=== PATIENT | male | born 1945 | race Caucasian/White ===

== ENCOUNTER → 2019-01-30 08:05 | Outpatient (CLI) | payer OTHER, SELFPAY ==
--- NOTE | 2019-01-30 | DI.ECHO.S_ITS ---
[facility] +---------+ : : [address] : : : : [id number] : : : : Phone: [phone]+ Echocardiogram Report + + :Name: JIMY HOLT Study Date: 01/30/2019 Height: 72 in : :[facility] Weight: 172 lb : : Gender: Male BSA: 2.0 m2 : :: 1945 Age: 73 yrs BP: 128/52 mmHg: :Reason For Study: Aortic, Ascending Aneurysm : :Ordering Physician: Delon : :Elton Performed By: Ade Taylor : :Referring: Dr. Tariq Pineda : + + Interpretation Summary Left ventricular systolic function is normal with the ejection fraction visually estimated to be 60-65% without focal wall motion abnormalities although there is a significant dyssynchronous contraction pattern, consistent with a conduction abnormality. Diastolic parameters suggest a relaxation abnormality of the left ventricle, consistent with probable normal filling pressures. There has been no significant change since the previous study. The right ventricle is normal in size and function and appears unchanged compared to the previous study. The right ventricular systolic pressure is estimated to be at least 26 mmHg based on an estimated right atrial pressure of 3 mm Hg, and is likely unchanged compared to the previous study. Both atria are mildly dilated. The left atrium has mildly increased in size while the right atrium has significantly decreased in size since the prior echo exam. There is mild to moderate mitral regurgitation that is likely unchanged compared to the previous study. There is a mechanical aortic valve that is not well visualized but appears to be well-seated with gradients through the prosthetic aortic valve that are within the normal range for this type of valve and are unchanged compared to the previous study. The aortic root and ascending aorta are moderately enlarged, but unchanged compared to the previous study. The aortic arch is mildly enlarged. The patient was in atrial fibrillation with heart rates between 50-55 bpm during the exam which is slightly slower compared to the previous study. Procedure: A two-dimensional transthoracic echocardiogram with color flow and Doppler was performed. The study quality was technically adequate. Comparison is made with the echocardiogram of 01-25-17. The patient was in atrial fibrillation with heart rates between 50-55 bpm during the exam. This is slightly slower compared to the previous study. Left Ventricle: The left ventricle is normal in size. Left ventricular wall thickness is at the upper limits of normal. Left ventricular systolic function is normal without focal wall motion abnormalities. The ejection fraction is estimated to be 60-65%. There is a significant dyssynchronous contraction pattern, consistent with a conduction abnormality. Diastolic parameters suggest a relaxation abnormality of the left ventricle, consistent with probable normal filling pressures. There has been no significant change since the previous study. Right Ventricle: The right ventricle is normal in size and function. This is unchanged compared to the previous study. Atria: Both atria are mildly dilated. The left atrium has mildly increased in size since the prior echo exam. The right atrium has significantly decreased in size since the prior echo exam. The interatrial septum is intact with no evidence for an atrial septal defect. Mitral Valve: There is mild mitral annular calcification. The mitral valve leaflets appear mildly thickened, but open well. There is mild to moderate mitral regurgitation. This is likely unchanged compared to the previous study. Aortic Valve: There is a mechanical aortic valve. The prosthetic aortic valve is not well visualized. The prosthetic aortic valve is well-seated. The gradients through the prosthetic aortic valve are within the normal range for this type of valve. This is unchanged compared to the previous study. No aortic regurgitation is present. Tricuspid Valve: The tricuspid valve is normal in structure and function. There is trace tricuspid regurgitation. The right ventricular systolic pressure is estimated to be at least 26 mmHg based on an estimated right atrial pressure of 3 mm Hg. This is unchanged compared to the previous study. Pulmonic Valve: The pulmonic valve is not well seen, but is grossly normal. There is trace pulmonic regurgitation. There is no other significant valvular heart disease. Great Vessels: The aortic root is moderately dilated. This is unchanged compared to the previous study. The ascending aorta is moderately enlarged. This is unchanged compared to the previous study. The aortic arch is mildly enlarged. The IVC is of normal diameter and collapses greater than 50% with a sniff. This suggests a low right atrial pressure of 3 mm Hg. Pericardium/ Pleura There is no pericardial effusion. There is no pleural effusion. MMode/2D Measurements & Calculations LVIDd: 3.6 cm LVOT diam: 2.1 cm LVIDs: 2.5 cm Ao root diam: 4.5 cm FS: 32.1 % Aortic Jxn: 3.3 cm IVSd: 1.2 cm asc Aorta Diam: 4.4 cm LVPWd: 1.0 cm Ao Arch Diam (Prox Trans): 3.5 cm LV tillman. diameter/BSA (cm/m^2): 1.8 LV sys. diameter/BSA (cm/m^2): 1.2 LA dimension: 3.6 cm RA long axis: 4.9 cm LA A2 area: 23.9 cm2 RA area: 21.0 cm2 LA A4 area: 20.3 cm2 RA vol: 76.6 ml LA length (vol): 5.3 cm RA : 38.3 ml/m2 LA vol: 77.3 ml IVC diam: 2.2 cm LA vol index: 38.7 ml/m2 RVD1 (basal): 3.5 cm RVD2 (mid): 4.5 cm Doppler Measurements & Calculations Ao V2 max: 252.0 cm/sec LVOT Max Macario: 110.3 cm/sec Ao V2 mean: 150.6 cm/sec LV V1 max P.9 mmHg Ao max P.4 mmHg LV V1 VTI: 22.9 cm Ao mean P.8 mmHg ANGIE(I,D): 1.8 cm2 Ao V2 VTI: 45.9 cm ANGIE(V,D): 1.6 cm2 sev ratio: 0.50 ANGIE indexed to BSA (cm^2/m^2): 0.91 MV E max macario: 141.2 cm/sec TR max macario: 242.6 cm/sec Med Peak E' Macario: 6.4 cm/sec TR max P.5 mmHg E/E' med: 22.0 PA V2 max: 128.8 cm/sec Lat Peak E' Macario: 11.7 cm/sec PA V2 mean: 68.8 cm/sec E/E' lat: 12.1 PA mean P.5 mmHg E/e' average: 17.0 PA Accel Time: 0.14 sec MV P1/2t: 106.5 msec MVA(VTI): 2.4 cm2 MR ERO: 0.51 cm2 MV V2 mean: 52.7 cm/sec MV P1/2t max macario: 141.2 cm/sec MV mean P.9 mmHg MVA(P1/2t): 2.1 cm2 MV V2 VTI: 34.8 cm MR flow rate: 257.7 cm3/sec SV(LVOT): 83.2 ml MR PISA radius: 0.80 cm Reading Physician:TARA
[2019-01-30 09:47] LABS: Alanine Aminotransferase 27 IU/L (21-72); Albumin 4.2 g/dL (3.5-5.0); Albumin Globulin Ratio 1.4 (1.0-2.8); Alkaline Phosphatase 57 U/L (38-126); Aspartate Aminotransferase 30 IU/L (17-59); Bilirubin Total 0.7 mg/dL (0.2-1.3); Blood Urea Nitrogen 24 mg/dL (9-20); Calcium 9.5 mg/dL (8.4-10.2); Carbon Dioxide 33 mmol/L (22-32); Chloride 99 mmol/L (98-107); Cholesterol 157 mg/dL (140-199); Estimated Glomerular Filt Rate 59.2 mL/min (>60); Globulin 3.1 g/dL (1.7-4.1); Glucose 90 mg/dL (80-110); HDL Cholesterol 55 mg/dL (40-60); HEMOLYSIS < 15 (0-50); LDL Cholesterol Calculated 84 mg/dL (<100); Magnesium 1.8 mg/dL (1.6-2.3); Potassium 4.7 mmol/L (3.4-5.1); Sodium 140 mmol/L (137-145); Total Protein 7.3 g/dL (6.3-8.2); Triglycerides 88 mg/dL (35-150)
== END ==
PROVIDERS: Family Provider Internal Medicine; PCP Internal Medicine; Visit Provider Specialist
DX: I71.2 Thoracic aortic aneurysm, without rupture (principal); I34.0 Nonrheumatic mitral (valve) insufficiency; I48.2 Chronic atrial fibrillation; E78.2 Mixed hyperlipidemia; Z95.2 Presence of prosthetic heart valve
CPT/HCPCS: 36415; 80053; 80061; 83735; 93306

== ENCOUNTER → 2019-03-03 13:29 | Outpatient (CLI) | payer OTHER, SELFPAY ==
[2019-03-03 13:53] LABS: Add Manual Diff / Slide Review NO; Basophils Absolute Auto 0 /uL (0-100); Basophils Percent Auto 0.6 % (0-2); Eosinophils Absolute Auto 600 /uL (0-450); Eosinophils Percent Auto 7.6 % (2-4); Hematocrit 45.5 % (41-53); Hemoglobin 15.2 g/dL (13.5-17.5); Lymphocytes Absolute Auto 700 /uL (1100-4500); Lymphocytes Percent Auto 8.3 % (25-40); Mean Corpuscular HGB Conc 33.4 % (30-36); Mean Corpuscular Hemoglobin 30.2 PG (26-34); Mean Corpuscular Volume 90.4 fL (80-100); Monocytes Absolute Auto 800 /uL (0-900); Monocytes Percent Auto 9.5 % (3-14); Neutrophils Absolute Auto 6100 /uL (1500-7000); Platelet Count 273 X10^3/uL (150-400); Red Blood Cell Count 5.03 X10^6/uL (4.5-5.9); White Blood Cell Count 8.2 X10^3/uL (4.5-11.0)
[2019-03-03 15:40] LABS: Prostate Specific Antigen 0.915 ng/mL (0.10-4.00)
== END ==
PROVIDERS: PCP Internal Medicine; Visit Provider Internal Medicine
DX: N18.9 Chronic kidney disease, unspecified (principal); M45.2 Ankylosing spondylitis of cervical region; E78.00 Pure hypercholesterolemia, unspecified
CPT/HCPCS: 36415; 84153; 85025

== ENCOUNTER → 2019-03-16 13:53 | Outpatient (CLI) | payer OTHER, SELFPAY ==
--- NOTE | 2019-03-16 | DI.RAD.S_ITS ---
PROCEDURE: XR CHEST 2V INDICATIONS: COUGH TECHNIQUE: 2 views of the chest were acquired. COMPARISON: [facility], , CHEST 2 VIEW, 11/10/2016, 13:51. FINDINGS: Surgical changes and devices: Sternotomy wires. Lungs and pleura: The lungs are hyperinflated in keeping with chronic obstructive physiology. Patchy consolidative opacity in the retrocardiac region. Its appears grossly increased. Elsewhere, no new or focal consolidation.. No pleural effusions or pneumothorax. Mediastinum: Mediastinal contours are normal. Heart size is normal. Bones and chest wall: No suspicious bony abnormalities. Soft tissues appear unremarkable. IMPRESSION: Scattered scarring/atelectasis. Increased patchy retrocardiac opacity raising the possibility of pneumonia versus aspiration recommend clinical correlation. If there is persistent clinical diagnostic uncertainty, continued surveillance with short interval chest radiographs after treatment is recommended. Hyperinflated lungs in keeping with chronic obstructive physiology. Dictated by: Woo Cortés M.D. on 03/16/2019 at 16:43 Approved by: Woo Cortés M.D. on 03/16/2019 at 16:46
== END ==
PROVIDERS: PCP Internal Medicine; Visit Provider Internal Medicine
DX: R05 Cough (principal)
CPT/HCPCS: 71046

== ENCOUNTER → 2019-04-10 13:55 | Outpatient (CLI) | payer OTHER, SELFPAY ==
--- NOTE | 2019-04-10 | DI.RAD.S_ITS ---
PROCEDURE: XR CHEST 2V INDICATIONS: Pneumonia, unspecified organism TECHNIQUE: 2 views of the chest were acquired. COMPARISON: [facility], CR, XR CHEST 2V, 03/16/2019, 13:53. FINDINGS: Surgical changes and devices: Sternotomy wires and CABG clips Lungs and pleura: Lungs are hyperinflated however no acute consolidation. Scattered scarring/atelectasis.. No pleural effusions or pneumothorax. Mediastinum: Mediastinal contours are normal. Heart size is normal. Bones and chest wall: No suspicious bony abnormalities. Soft tissues appear unremarkable. IMPRESSION: No acute consolidation. Scattered subsegmental atelectasis and/or scarring. Hyperinflated lungs in keeping with chronic obstructive physiology. Dictated by: Woo Cortés M.D. on 04/10/2019 at 15:22 Approved by: Woo Cortés M.D. on 04/10/2019 at 15:24
== END ==
PROVIDERS: PCP Internal Medicine; Visit Provider Internal Medicine
DX: J18.9 Pneumonia, unspecified organism (principal)
CPT/HCPCS: 71046

== ENCOUNTER → 2019-10-27 14:41 | Outpatient (CLI) | payer OTHER, SELFPAY ==
--- NOTE | 2019-10-30 15:45 | DI.NM.S_ITS ---
DATE OF SERVICE: 10/27/2019 PROCEDURE PERFORMED: Pharmacologic vasodilator stress and rest myocardial perfusion imaging study with gating to assess ejection fraction and regional wall motion. ORDERING PROVIDER: Tariq Pineda MD. INDICATIONS: The patient is an 74-year-old male with chronic atrial fibrillation and prosthetic valve replacement who now presents with chest discomfort. CARDIAC STRESS: Per protocol, 0.4 mg of regadenoson was infused with a normal hemodynamic response. His resting heart rate was 49 bpm and increased to a peak of 54 bpm. He had no chest discomfort. His resting ECG shows an atypical LBBB with underlying atrial fibrillation. There are no significant ST-segment shifts noted. There were no other arrhythmias. FINDINGS: 1. Raw Data: There is marginal image quality with some subdiaphragmatic tracer activity noted on the resting images. The patient was unable to lay prone because of his cervical fusion. The lung/heart ratio is normal at 0.31 with a normal TID ratio of 1.07. 2. Quantitative Gated SPECT: Post stress ejection fraction is estimated at 63% without any focal wall motion abnormality. Resting ejection fraction is 69% with a moderately increased end-diastolic volume of 165 mL. 3. Myocardial Perfusion Imaging: Post stress supine images are of marginal image quality but suggest a mild defect in the oiu-zh-[id number] anterior septum in a location that would be typical for an LBBB artifact. This does not extend the anterior wall appreciably. There are no prone images to assess for any attenuation artifact. The resting images show a fairly similar perfusion pattern with perhaps very subtle improvement in the distal anteroseptal defect. There are no obvious areas of significant improvement. CONCLUSION: 1. Probable normal myocardial perfusion study, although with significant reduced sensitivity and specificity because of marginal image quality and a lack of prone imaging. 2. Subtle, predominantly fixed but slightly reversible perfusion defect in the aga-jp-brpcbr anterior septum in a location that would be consistent with LBBB artifact. There is no prone imaging for further delineation. While this could reflect a previous nontransmural infarction with mild saurabh-infarct ischemia, this more likely reflects LBBB artifact. If it does reflect a true perfusion defect, it is relatively small and mild and thus, would be considered a low-risk study. 3. Normal left ventricular systolic function without any regional wall motion abnormality but moderately increased left ventricular volumes. 4. No angina or obvious ECG abnormalities of ischemia with pharmacologic vasodilator stress, although the presence of an underlying conduction defect reduces the specificity of the ST segment analysis. He was in atrial fibrillation and moderately bradycardic with a heart rate of 49 at rest. Vangie, Ryanjoshua - RUDY/geovany/ doc#: [id number]/job#: [id number] dd: 10/30/2019 12:34:00 dt: 10/30/2019 15:30:00 DICTATING MD/COPIES TO: Delon Conde MD; Tariq Pineda MD COPIES MNE: REBEKAH RAMIREZ
== END ==
PROVIDERS: Family Provider Specialist; PCP Internal Medicine; Visit Provider Internal Medicine
DX: R07.89 Other chest pain (principal); I48.20 Chronic atrial fibrillation, unspecified; Z95.2 Presence of prosthetic heart valve
CPT/HCPCS: 78452; 93016; 93017; 93018; A9502; J2785

== ENCOUNTER → 2020-01-26 09:08 | Outpatient (CLI) | payer OTHER, SELFPAY ==
[2020-01-26 10:38] LABS: Alanine Aminotransferase 22 IU/L (<50); Albumin 4.2 g/dL (3.5-5.0); Albumin Globulin Ratio 1.4 (1.0-2.8); Alkaline Phosphatase 56 U/L (38-126); Aspartate Aminotransferase 39 IU/L (17-59); BUN Creatinine Ratio 16.7 (6-22); Bilirubin Total 0.7 mg/dL (0.2-1.3); Blood Urea Nitrogen 20 mg/dL (9-20); Calcium 9.7 mg/dL (8.4-10.2); Carbon Dioxide 34 mmol/L (22-32); Chloride 102 mmol/L (98-107); Globulin 3.1 g/dL (1.7-4.1); Glucose 90 mg/dL (80-110); HEMOLYSIS < 15 (0-50); Magnesium 1.7 mg/dL (1.6-2.3); Potassium 4.6 mmol/L (3.4-5.1); Sodium 141 mmol/L (137-145); Total Protein 7.3 g/dL (6.3-8.2)
[2020-01-30 07:55] LABS: Lipoprofile NMR SEE SEPARATE REPORTS
== END ==
PROVIDERS: Family Provider Specialist; PCP Internal Medicine; Referring Provider Specialist; Visit Provider Specialist
DX: I48.20 Chronic atrial fibrillation, unspecified (principal); E78.2 Mixed hyperlipidemia
CPT/HCPCS: 36415; 80053; 83704; 83735

== ENCOUNTER → 2020-09-26 07:11 | Outpatient (CLI) | payer OTHER, SELFPAY ==
[2020-09-26 08:31] LABS: Add Manual Diff / Slide Review NO; Basophils Absolute Auto 0 /uL (0-100); Basophils Percent Auto 0.6 % (0-2); Eosinophils Absolute Auto 500 /uL (0-450); Eosinophils Percent Auto 7.9 % (2-4); Hematocrit 45.8 % (41-53); Hemoglobin 15.2 g/dL (13.5-17.5); Lymphocytes Absolute Auto 1200 /uL (1100-4500); Lymphocytes Percent Auto 19.1 % (25-40); Mean Corpuscular HGB Conc 33.2 % (30-36); Mean Corpuscular Hemoglobin 31.1 PG (26-34); Mean Corpuscular Volume 93.6 fL (80-100); Monocytes Absolute Auto 700 /uL (0-900); Neutrophils Absolute Auto 3800 /uL (1500-7000); Neutrophils Percent Auto 61.4 % (50-75); Platelet Count 190 X10^3/uL (150-400); Red Blood Cell Count 4.89 X10^6/uL (4.5-5.9); Red Cell Distribution Width 15.3 % (11.6-14.8); White Blood Cell Count 6.3 X10^3/uL (4.5-11.0)
[2020-09-26 08:54] LABS: Alanine Aminotransferase 20 IU/L (<50); Albumin 4.1 g/dL (3.5-5.0); Albumin Globulin Ratio 1.4 (1.0-2.8); Alkaline Phosphatase 59 U/L (38-126); Aspartate Aminotransferase 40 IU/L (17-59); BUN Creatinine Ratio 17.2 (6-22); Bilirubin Total 0.9 mg/dL (0.2-1.3); Blood Urea Nitrogen 21 mg/dL (9-20); Calcium 9.3 mg/dL (8.4-10.2); Carbon Dioxide 37 mmol/L (22-32); Chloride 102 mmol/L (98-107); Cholesterol 158 mg/dL (140-199); Estimated Glomerular Filt Rate 57.8 mL/min (>60); Glucose 90 mg/dL (80-110); HDL Cholesterol 57 mg/dL (40-60); HEMOLYSIS < 15 (0-50); LDL Cholesterol Calculated 81 mg/dL (<100); Potassium 4.6 mmol/L (3.4-5.1); Sodium 138 mmol/L (137-145); Total Protein 7.1 g/dL (6.3-8.2); Triglycerides 99 mg/dL (35-150)
== END ==
PROVIDERS: Family Provider Specialist; PCP Internal Medicine; Referring Provider Internal Medicine; Visit Provider Internal Medicine
DX: N18.9 Chronic kidney disease, unspecified (principal); E78.00 Pure hypercholesterolemia, unspecified
CPT/HCPCS: 36415; 80053; 80061; 85025

== ENCOUNTER → 2021-07-03 06:26 | Outpatient (CLI) | payer OTHER, SELFPAY ==
[2021-07-03 08:10] LABS: Alanine Aminotransferase 20 IU/L (<50); Albumin 3.8 g/dL (3.5-5.0); Albumin Globulin Ratio 1.2 (1.0-2.8); Alkaline Phosphatase 53 U/L (38-126); Aspartate Aminotransferase 35 IU/L (17-59); BUN Creatinine Ratio 18.3 (6-22); Bilirubin Total 0.7 mg/dL (0.2-1.3); Blood Urea Nitrogen 24 mg/dL (9-20); Calcium 9.5 mg/dL (8.4-10.2); Carbon Dioxide 35 mmol/L (22-32); Chloride 102 mmol/L (98-107); Estimated Glomerular Filt Rate 53.1 mL/min (>60); Globulin 3.1 g/dL (1.7-4.1); Glucose 94 mg/dL (80-110); HEMOLYSIS < 15 (0-50); Potassium 4.9 mmol/L (3.4-5.1); Sodium 141 mmol/L (137-145); Total Protein 6.9 g/dL (6.3-8.2)
[2021-07-04 02:38] LABS: Cholesterol HDL Ratio 2.6 ratio (0.0-5.0); Cholesterol,Total 140 mg/dL (100-199); HDL Cholesterol 53 mg/dL (>39); LDL Cholesterol Cal 73 mg/dL (0-99); Triglycerides 70 mg/dL (0-149); VLDL Cholesterol Cal 14 mg/dL (5-40)
[2021-07-05 09:36] LABS: Cholesterol, Total 149 mg/dL (100-199); HDL-Cholesterol 61 mg/dL (>39); HDL-Particle (Total) 32.7 umol/L (>=30.5); LDL Particle 654 nmol/L (<1000); LDL Size 20.5 nm (>20.5); LDL-Cholsterol 74 mg/dL (0-99); LP-IR Score <25 (<=45); Small LDL- Particle 285 nmol/L (<=527); Triglycerides 71 mg/dL (0-149)
== END ==
PROVIDERS: Family Provider Specialist; PCP Internal Medicine; Referring Provider Internal Medicine; Visit Provider Internal Medicine
DX: E78.2 Mixed hyperlipidemia (principal); I48.20 Chronic atrial fibrillation, unspecified
CPT/HCPCS: 36415; 80053; 80061; 83704; 83735

== ENCOUNTER → 2022-02-02 07:58 | Outpatient (CLI) | payer OTHER, SELFPAY ==
--- NOTE | 2022-02-02 | DI.ECHO.S_ITS ---
[facility]---------+ [facility] +---------+ : : [address] : [address] : : : : [id number] : : : : Phone: [phone]---------+ Echocardiogram Report + + :Name: JIMY HOLT Study Date: 02/02/2022 Height: 75 in : :[facility] ReadingLocation: Weight: 185 lb : : Gender: Male BSA: 2.1 m2 : :: 1945 Age: 76 yrs BP: 165/79 mmHg: :Reason For Study: MECHANICAL AORTIC VALVE REPLACEMENT : :Ordering Physician: SATINDER, : :JORDAN Performed By: Ruby Adams : :Referring: JORDAN RAJAN : + + Interpretation Summary Left ventricular systolic function is borderline reduced with an estimated ejection fraction of 50 to 60% with considerable [id number] variability because of atrial fibrillation and a severe dyssynchronous contraction pattern due to a conduction abnormality. There are no obvious focal wall motion abnormalities. Contractility appears to be slightly less dynamic compared to the previous exam. Left ventricular size remains normal with borderline LVH. Diastolic function remains challenging to assess because of atrial fibrillation but is likely similar to the previous study with no compelling evidence for significantly elevated filling pressures. The right ventricle is normal in size with borderline reduced systolic function and appears slightly less dynamic compared to the previous study. Right ventricular systolic pressure cannot be estimated but CVP is likely around 3 mmHg. There is severe biatrial enlargement, both measuring significantly larger compared to the previous study. There is probable mild to moderate mitral regurgitation that is likely unchanged from the previous study. There is a mechanical aortic valve that appears to be functioning normally with similar gradients compared to the previous exam. The aortic root and ascending aorta are moderately enlarged at 4.5 and 4.0 cm, respectively, but are likely unchanged from the previous exam. The patient was in atrial fibrillation between 43 to 46 bpm during the study which is slightly slower compared to the previous exam. Procedure: A two-dimensional transthoracic echocardiogram with color flow and Doppler was performed. The study quality was technically adequate. Comparison is made with the echocardiogram of 01/30/2019. The patient was in atrial fibrillation with heart rates between 43-46 bpm during the exam. This is slightly slower compared to the previous study. Left Ventricle: The left ventricle is normal in size. The estimated left ventricular end diastolic volume is 79 ml. Left ventricular wall thickness is borderline increased. Left ventricular systolic function is borderline reduced. Left ventricular ejection fraction is estimated to be 50 to 60% with considerable [id number]-bd-[id number] variability because of atrial fibrillation. There is a severe dyssynchronous contraction pattern, consistent with a conduction abnormality. There are no focal wall motion abnormalities. This is slightly less dynamic compared to the previous study. Diastolic function could not be accurately assessed due to atrial fibrillation. This is likely unchanged compared to the previous study. Right Ventricle: The right ventricle is normal size. Right ventricular systolic function is at the lower limits of normal. This is slightly less dynamic compared to the previous study. Atria: The left atrium is severely dilated. Both atria have significantly increased in size since the prior echo exam. The right atrium is severely dilated. There is no Doppler evidence for an interatrial shunt. Mitral Valve: There is mild mitral annular calcification. The mitral valve leaflets appear moderately thickened, but open well. There is mild to moderate mitral regurgitation. This is unchanged compared to the previous study. Aortic Valve: There is a mechanical aortic valve. The prosthetic aortic valve is well-seated. The gradients through the prosthetic aortic valve are within the normal range for this type of valve. There is probable normal prosthetic aortic valve function. The peak aortic velocity is 2.5 m/sec. The aortic valve mean gradient is 14 mmHg. Tricuspid Valve: The tricuspid valve is normal in structure and function. There is trace tricuspid regurgitation. Pulmonary artery pressures cannot be estimated because of the lack of a measurable TR jet velocity but the IVC suggests a CVP of around 3 mmHg. Pulmonic Valve: The pulmonic valve leaflets are thin and pliable; valve motion is normal. There is trace pulmonic regurgitation. Great Vessels: The aortic root is moderately dilated. The ascending aorta is moderately enlarged. This is unchanged compared to the previous study. The IVC is of normal diameter and collapses greater than 50% with a sniff. This suggests a low right atrial pressure of 3 mm Hg. Pericardium/ Pleura There is no pericardial effusion. There is no pleural effusion. MMode/2D Measurements & Calculations LVIDd: 4.7 cm LVOT diam: 2.3 cm LVIDs: 3.3 cm Ao root diam: 4.5 cm FS: 29.5 % asc Aorta Diam: 4.0 cm IVSd: 0.94 cm LVPWd: 1.1 cm LV tillman. diameter/BSA (cm/m^2): 2.2 LV sys. diameter/BSA (cm/m^2): 1.6 LA A2 area: 32.2 cm2 RA long axis: 7.5 cm LA A4 area: 36.9 cm2 RA area: 35.9 cm2 LA length (vol): 8.4 cm RA vol: 145.8 ml LA vol: 120.5 ml RA : 68.7 ml/m2 LA vol index: 56.8 ml/m2 IVC diam: 1.5 cm RVD1 (basal): 3.6 cm TAPSE: 1.7 cm Doppler Measurements & Calculations Ao V2 max: 253.3 cm/sec LVOT Max Macario: 102.8 cm/sec Ao V2 mean: 170.3 cm/sec LV V1 max P.3 mmHg Ao max P.7 mmHg LV V1 VTI: 23.2 cm Ao mean P.1 mmHg ANGIE(I,D): 1.8 cm2 Ao V2 VTI: 53.7 cm ANGIE(V,D): 1.7 cm2 sev ratio: 0.43 ANGIE indexed to BSA (cm^2/m^2): 0.85 MV E max macario: 143.1 cm/sec PA V2 max: 127.7 cm/sec MV A max macario: 3.2 cm/sec PA V2 mean: 91.0 cm/sec MV E/A: 44.9 PA mean P.7 mmHg Med Peak E' Macario: 5.4 cm/sec PA pr(Accel): 27.6 mmHg E/E' med: 26.5 Lat Peak E' Macario: 11.2 cm/sec E/E' lat: 12.8 E/e' average: 19.7 MV dec time: 0.37 sec SV(LVOT): 97.4 ml Reading Physician:11:05 AM
[2022-02-02 10:29] LABS: Alanine Aminotransferase 18 IU/L (<50); Albumin 4.6 g/dL (3.5-5.0); Albumin Globulin Ratio 1.6 (1.0-2.8); Alkaline Phosphatase 52 U/L (38-126); Aspartate Aminotransferase 30 IU/L (17-59); Bilirubin Total 0.8 mg/dL (0.2-1.3); Blood Urea Nitrogen 24 mg/dL (9-20); Calcium 9.6 mg/dL (8.4-10.2); Carbon Dioxide 32 mmol/L (22-32); Chloride 103 mmol/L (98-107); Estimated Glomerular Filt Rate 55.5 mL/min (>60); Globulin 2.9 g/dL (1.7-4.1); Glucose 94 mg/dL (80-110); HEMOLYSIS < 15 (0-50); Magnesium 1.8 mg/dL (1.6-2.3); Sodium 140 mmol/L (137-145); Total Protein 7.5 g/dL (6.3-8.2)
== END ==
PROVIDERS: Family Provider Specialist; PCP Internal Medicine; Referring Provider Specialist; Visit Provider Specialist
DX: I34.0 Nonrheumatic mitral (valve) insufficiency (principal); I77.810 Thoracic aortic ectasia; I48.20 Chronic atrial fibrillation, unspecified; I77.89 Other specified disorders of arteries and arterioles; E78.00 Pure hypercholesterolemia, unspecified; Z95.2 Presence of prosthetic heart valve
CPT/HCPCS: 36415; 80053; 83735; 93306

== ENCOUNTER → 2022-06-16 13:55 | Outpatient (CLI) | payer OTHER, SELFPAY ==
--- NOTE | 2022-06-16 | DI.NM.S_ITS ---
PROCEDURE: NM EXERCISE TREADMILL NON NUC COMPARISON: None. INDICATIONS: Left bundle-branch block, unspecified FINDINGS: The patient exercised for 4 minutes and 40 seconds, reaching 73% of maximum predicted heart rate. 5.6 METs, LIANNA +11%. No angina during the study. Resting ECG showed atrial flutter with ventricular rates in the 40s-50s range. With exercise, there were no ST changes. Frequent PVCs and 3-5 non-sustained VT runs noted with exercise and during recovery. It is possible that the arrhythmias are aberrant conductions. IMPRESSION: Low risk submaximal stress test as only 73% of maximum predicted heart rate achieved (5.6 METs, LIANNA +11%). No angina and no ST changes with exercise. Frequent PVCs vs aberrant conductions (example hal phenomenon) and 3-5 non-sustained wide complex runs (again NSVT vs aberrant conductions) noted with exercise and during recovery. Dictated by: Pallavi Sethi MD on 06/16/2022 at 17:13 Approved by: Pallavi Sethi MD on 06/16/2022 at 17:19
--- NOTE | 2022-06-16 15:46 | PM.TREADMILL ---
Cardiac Stress Test Report Referral & Results Date Patient Seen: 06/16/22 Time Patient Seen: 15:46 Requesting provider: Jose L Smith Indication: LBBB Rest ECG: Atrial flutter with bradycardic rate and LBBB Procedure Note: Standard Thee protocol, 4:40 minutes, 5.6 METS Reduced exercise capacity, LIANNA +11% Blunted heart rate response to exercise No chest pain or anginal symptoms NSVT at peak exercise with dyspnea which resolved with rest; no treatment required Frequent PVCs and couplets Impression: Equivocal non nuclear exercise stress test Please note: Actual ECG tracings can be found in the PACS system.
== END ==
PROVIDERS: Family Provider Specialist; PCP Internal Medicine; Referring Provider Physician Assistant; Visit Provider Physician Assistant
DX: I44.7 Left bundle-branch block, unspecified (principal); Z95.2 Presence of prosthetic heart valve; I48.21 Permanent atrial fibrillation
CPT/HCPCS: 93017

== ENCOUNTER → 2023-02-05 13:50 | Outpatient (CLI) | payer OTHER, SELFPAY ==
[2023-02-05 14:32] LABS: Alanine Aminotransferase 21 IU/L (<50); Albumin 4.3 g/dL (3.5-5.0); Albumin Globulin Ratio 1.5 (1.0-2.8); Alkaline Phosphatase 53 U/L (38-126); Aspartate Aminotransferase 32 IU/L (17-59); BUN Creatinine Ratio 20.6 (6-22); Bilirubin Total 0.6 mg/dL (0.2-1.3); Blood Urea Nitrogen 26 mg/dL (9-20); Calcium 9.2 mg/dL (8.4-10.2); Carbon Dioxide 30 mmol/L (22-32); Chloride 104 mmol/L (98-107); Estimated Glomerular Filt Rate 58 mL/min (>60); Globulin 2.9 g/dL (1.7-4.1); Glucose 84 mg/dL (80-110); HEMOLYSIS < 15 (0-50); Magnesium 1.8 mg/dL (1.6-2.3); Potassium 4.9 mmol/L (3.4-5.1); Sodium 139 mmol/L (137-145); Total Protein 7.2 g/dL (6.3-8.2)
[2023-02-08 12:37] LABS: Cholesterol, Total 153 mg/dL (100-199); HDL-Cholesterol 61 mg/dL (>39); HDL-Particle (Total) 30.3 umol/L (>=30.5); LDL Particle 707 nmol/L (<1000); LDL-Cholsterol 77 mg/dL (0-99); LP-IR Score <25 (<=45); Small LDL- Particle 91 nmol/L (<=527); Triglycerides 77 mg/dL (0-149)
== END ==
PROVIDERS: Family Provider Specialist; PCP Family Medicine; Referring Provider Specialist; Visit Provider Specialist
DX: I48.20 Chronic atrial fibrillation, unspecified (principal); E78.2 Mixed hyperlipidemia
CPT/HCPCS: 36415; 80053; 80061; 83704; 83735

== ENCOUNTER → 2023-10-06 07:28 | Outpatient (CLI) | payer OTHER, SELFPAY ==
--- NOTE | 2023-10-06 07:36 | DI.ECHO.S_ITS ---
[place] [facility]---------+ [facility] +---------+ : : [address] : [address] : : : : [id number] : : : : Phone: [phone]+ Echocardiogram Report + + :Name: JIMY HOLT Study Date: 10/06/2023 Height: 72 in : :[facility] ReadingLocation: Weight: 178 lb : : Gender: Male BSA: 2.0 m2 : :: 1945 Age: 78 yrs BP: 102/68 mmHg: :Reason For Study: LEFT BUNDLE BRANCH BLOCK : :Ordering Physician: BRAYDEN, : :NICOLE Performed By: Ruby Adams : :Referring: JORDAN RAJAN : + + Interpretation Summary Left ventricular systolic function remains grossly normal with an estimated ejection fraction of 55 to 60% without any obvious focal wall motion abnormality although with a significant dyssynchronous contraction pattern and septal movement consistent with a postoperative state but appears unchanged. Left ventricular size and wall thickness grossly appears normal. Diastolic function is challenging to assess but there is no evidence for significantly elevated filling pressures and are likely unchanged from the previous study. The right ventricle is not well seen but grossly appears normal and unchanged from the previous study. Right ventricular systolic pressure and CVP could not be estimated. The left atrium is moderately enlarged and the right atrium is severely enlarged but both measure slightly smaller compared to the previous study. There is mild to moderate mitral regurgitation that appears slightly less prominent compared to the previous study and mild pulmonic valve regurgitation that is slightly more prominent. There is a mechanical prosthetic aortic valve with a peak velocity of 1.9 m/s and a mean gradient of 8 mmHg, suggesting normal and likely unchanged valve function. The patient was in a paced rhythm with underlying atrial fibrillation at rates of 60 to 65 bpm, slightly faster compared to the previous exam. Procedure: A two-dimensional transthoracic echocardiogram with color flow and Doppler was performed. The study quality was technically adequate. Comparison is made with the echocardiogram of 02/02/2022. The patient has a paced rhythm. The patient was in atrial fibrillation with heart rates between 60-66 bpm during the exam. This is slightly faster compared to the previous study. Left Ventricle: The left ventricle is normal in size and wall thickness. The estimated left ventricular end diastolic volume is 69 mL compared to the previous 79 ml. Left ventricular systolic function is normal. The ejection fraction is estimated to be 55-60%. There is a significant dyssynchronous contraction pattern, consistent with a conduction abnormality. Septal motion is consistent with post-operative state. There are no obvious focal wall motion abnormalities noted but poor endocardial definition reduces the sensitivity for the detection of such. Diastolic function could not be accurately assessed due to atrial fibrillation. This is unchanged compared to the previous study. Right Ventricle: The right ventricle is not well visualized. The right ventricle grossly appears normal in size with probable normal systolic function. This is likely unchanged compared to the previous study. Atria: The left atrium is moderately dilated. Both atria have mildly decreased in size since the prior echo exam. The right atrium is severely dilated. There is no Doppler evidence for an interatrial shunt. Mitral Valve: There is mild to moderate mitral annular calcification. The mitral valve leaflets appear moderately thickened, but open well. There is mild to moderate mitral regurgitation. This is slightly less prominent compared to the previous study. Aortic Valve: There is a mechanical aortic valve. The prosthetic aortic valve is not well visualized. There is probable normal prosthetic aortic valve function. The peak aortic velocity is 1.9 m/sec. The peak aortic velocity on the previous exam was 2.5 m/sec. The aortic valve mean gradient is 8 mmHg compared to the previous 14 mmHg. Tricuspid Valve: The tricuspid valve is not well visualized, but is grossly normal. There is trace tricuspid regurgitation. Pulmonary artery pressures cannot be estimated because of the lack of a measurable TR jet velocity. Pulmonic Valve: The pulmonic valve is not well seen, but is grossly normal. There is mild pulmonic regurgitation. This is slightly more prominent compared to the previous study. Great Vessels: The aortic root is moderately dilated. The ascending aorta is moderately enlarged. This is unchanged compared to the previous study. The inferior vena cava was not well visualized. Pericardium/ Pleura There is no pericardial effusion. There is no pleural effusion. MMode/2D Measurements & Calculations LVIDd: 4.7 cm LVOT diam: 2.4 cm LVIDs: 3.1 cm Ao root diam: 4.5 cm FS: 34.6 % asc Aorta Diam: 4.1 cm IVSd: 0.99 cm LVPWd: 0.78 cm LV tillman. diameter/BSA (cm/m^2): 2.3 LV sys. diameter/BSA (cm/m^2): 1.5 LA A2 area: 23.4 cm2 RA long axis: 6.8 cm LA A4 area: 34.1 cm2 RA area: 29.7 cm2 LA length (vol): 7.2 cm RA vol: 109.2 ml LA vol: 93.6 ml RA : 53.9 ml/m2 LA vol index: 46.2 ml/m2 RVD1 (basal): 4.1 cm Doppler Measurements & Calculations Ao V2 max: 185.9 cm/sec LVOT Max Macario: 90.8 cm/sec Ao V2 mean: 135.1 cm/sec LV V1 max P.3 mmHg Ao max P.8 mmHg LV V1 VTI: 16.9 cm Ao mean P.1 mmHg ANGIE(I,D): 2.3 cm2 Ao V2 VTI: 31.9 cm ANGIE(V,D): 2.1 cm2 sev ratio: 0.53 ANGIE indexed to BSA (cm^2/m^2): 1.1 MV E max macario: 110.9 cm/sec PA V2 max: 96.0 cm/sec MV A max macario: 24.9 cm/sec PA V2 mean: 59.4 cm/sec MV E/A: 4.4 PA mean P.6 mmHg Med Peak E' Macario: 6.5 cm/sec PA pr(Accel): 32.8 mmHg E/E' med: 17.0 Lat Peak E' Macario: 6.6 cm/sec E/E' lat: 16.7 E/e' average: 16.8 MV dec time: 0.36 sec SV(LVOT): 74.0 ml Reading Physician:08:02 AM
[2023-10-06 09:25] LABS: INR 2.7 (0.9-1.3); Prothrombin Time 31.4 SECONDS (10.1-12.7)
[2023-10-06 09:35] LABS: Alanine Aminotransferase 17 IU/L (<50); Albumin 4.3 g/dL (3.5-5.0); Albumin Globulin Ratio 1.4 (1.0-2.8); Alkaline Phosphatase 60 U/L (38-126); Aspartate Aminotransferase 34 IU/L (17-59); BUN Creatinine Ratio 18.2 (6-22); Blood Urea Nitrogen 24 mg/dL (9-20); Calcium 10.1 mg/dL (8.4-10.2); Carbon Dioxide 31 mmol/L (22-32); Chloride 101 mmol/L (98-107); Cholesterol 159 mg/dL (140-199); Estimated Glomerular Filt Rate 55 mL/min (>60); Glucose 89 mg/dL (80-110); HDL Cholesterol 60 mg/dL (40-60); HEMOLYSIS < 15 (0-50); LDL Cholesterol Calculated 82 mg/dL (<100); Magnesium 1.8 mg/dL (1.6-2.3); Potassium 4.4 mmol/L (3.4-5.1); Sodium 139 mmol/L (137-145); Total Protein 7.3 g/dL (6.3-8.2); Triglycerides 83 mg/dL (35-150)
== END ==
PROVIDERS: Internal Medicine; Family Provider Specialist; PCP Pediatrics; Referring Provider Specialist; Visit Provider Specialist
DX: I37.1 Nonrheumatic pulmonary valve insufficiency (principal); I77.810 Thoracic aortic ectasia; I34.81 Nonrheumatic mitral (valve) annulus calcification; I44.7 Left bundle-branch block, unspecified; I34.0 Nonrheumatic mitral (valve) insufficiency; I77.89 Other specified disorders of arteries and arterioles; I48.20 Chronic atrial fibrillation, unspecified; E78.00 Pure hypercholesterolemia, unspecified; I82.409 Acute embolism and thrombosis of unspecified deep veins of unspecified lower extremity; Z95.0 Presence of cardiac pacemaker; Z95.2 Presence of prosthetic heart valve
CPT/HCPCS: 36415; 80053; 80061; 83735; 85610; 93306

== ENCOUNTER → 2024-03-14 11:01 | Outpatient (CLI) | payer OTHER, SELFPAY ==
--- NOTE | 2024-03-14 11:02 | DI.RAD.S_ITS ---
PROCEDURE: XR DEXA AXIAL SKELETON INDICATIONS: SCREENING FOR OSTEOPOROSIS COMPARISON: None. FINDINGS: Lumbar Spine: L1-L2, L4. Bone mineral density 1.452 g/cm2, T score 3.8. Left Hip: Bone mineral density 0.906 g/cm2, T score -0.3. Left Femoral Neck: Bone mineral density 0.843 g/cm2, T score -0.1. Right Hip: Bone mineral density 0.957 g/cm2, T score 0.1. Right Femoral Neck: Bone mineral density 0.799 g/cm2, T score -0.5. Fracture Risk Calculation (when applicable): Not provided due to bone density within normal limits. (T score greater or equal to -1.0 to: NORMAL) (T score from -1.1 to -2.4: OSTEOPENIA) (T score less than or equal to -2.5: OSTEOPOROSIS) IMPRESSION: 1. Bone mineral density is within normal limits. Dictated by: Theo Loya M.D. on 03/14/2024 at 20:27 Approved by: Theo Loya M.D. on 03/14/2024 at 20:30
== END ==
PROVIDERS: Family Provider Specialist; PCP Family Medicine; Referring Provider Specialist/Technologist Athletic Trainer; Visit Provider Specialist/Technologist Athletic Trainer
DX: M85.89 Other specified disorders of bone density and structure, multiple sites (principal); Z13.820 Encounter for screening for osteoporosis; M45.0 Ankylosing spondylitis of multiple sites in spine
CPT/HCPCS: 77080

== ENCOUNTER → 2024-07-10 07:00 | Outpatient (CLI) | payer OTHER, SELFPAY ==
[2024-07-10 08:37] LABS: Alanine Aminotransferase 15 IU/L (<50); Albumin Globulin Ratio 1.6 (1.0-2.8); Alkaline Phosphatase 55 U/L (38-126); Aspartate Aminotransferase 33 IU/L (17-59); BUN Creatinine Ratio 16.9 (6-22); Bilirubin Total 0.9 mg/dL (0.2-1.3); Blood Urea Nitrogen 23 mg/dL (9-20); Calcium 9.5 mg/dL (8.4-10.2); Carbon Dioxide 29 mmol/L (22-32); Chloride 105 mmol/L (98-107); Cholesterol 142 mg/dL (140-199); Estimated Glomerular Filt Rate 53 mL/min (>60); Globulin 2.5 g/dL (1.7-4.1); Glucose 90 mg/dL (80-110); HDL Cholesterol 59 mg/dL (40-60); HEMOLYSIS < 15 (0-50); LDL Cholesterol Calculated 68 mg/dL (<100); Magnesium 1.8 mg/dL (1.6-2.3); Potassium 4.7 mmol/L (3.4-5.1); Sodium 139 mmol/L (137-145); Total Protein 6.5 g/dL (6.3-8.2); Triglycerides 76 mg/dL (35-150)
== END ==
LOC: LAB 07:01
PROVIDERS: Family Provider Specialist; PCP Family Medicine; Referring Provider Family Medicine; Visit Provider Specialist
DX: Z00.00 Encounter for general adult medical examination without abnormal findings (principal); E78.00 Pure hypercholesterolemia, unspecified; I48.20 Chronic atrial fibrillation, unspecified
CPT/HCPCS: 36415; 80053; 80061; 83704; 83735

== ENCOUNTER → 2025-02-27 08:01 | Outpatient (CLI) | payer OTHER, SELFPAY ==
[2025-02-27 09:07] LABS: Alanine Aminotransferase 22 IU/L (<50); Albumin 4.3 g/dL (3.5-5.0); Albumin Globulin Ratio 1.6 (1.0-2.8); Alkaline Phosphatase 54 U/L (38-126); Aspartate Aminotransferase 38 IU/L (17-59); BUN Creatinine Ratio 14.9 (6-22); Bilirubin Total 0.8 mg/dL (0.2-1.3); Blood Urea Nitrogen 20 mg/dL (9-20); Calcium 9.7 mg/dL (8.4-10.2); Carbon Dioxide 31 mmol/L (22-32); Chloride 102 mmol/L (98-107); Cholesterol 145 mg/dL (140-199); Estimated Glomerular Filt Rate 54 mL/min (>60); Globulin 2.7 g/dL (1.7-4.1); Glucose 94 mg/dL (80-110); HDL Cholesterol 61 mg/dL (40-60); HEMOLYSIS < 15 (0-50); LDL Cholesterol Calculated 69 mg/dL (<100); Magnesium 1.7 mg/dL (1.6-2.3); Potassium 4.9 mmol/L (3.4-5.1); Sodium 139 mmol/L (137-145); Triglycerides 76 mg/dL (35-150)
== END ==
PROVIDERS: Family Provider Specialist; PCP Family Medicine; Referring Provider Specialist; Visit Provider Specialist
DX: I48.20 Chronic atrial fibrillation, unspecified (principal); E78.00 Pure hypercholesterolemia, unspecified
CPT/HCPCS: 36415; 80053; 80061; 83735

== ENCOUNTER → 2025-03-16 08:32 | Outpatient (CLI) | payer OTHER, SELFPAY ==
[2025-03-16 09:37] LABS: Add Manual Diff / Slide Review NO; Basophils Absolute Auto 0 /uL (0-100); Basophils Percent Auto 0.2 % (0-2); Eosinophils Absolute Auto 400 /uL (0-450); Eosinophils Percent Auto 5.2 % (2-4); Hematocrit 42.7 % (41-53); Hemoglobin 14.5 g/dL (13.5-17.5); Lymphocytes Absolute Auto 2500 /uL (1100-4500); Lymphocytes Percent Auto 37.1 % (25-40); Mean Corpuscular Hemoglobin 31.6 PG (26-34); Mean Corpuscular Volume 93.1 fL (80-100); Monocytes Absolute Auto 600 /uL (0-900); Neutrophils Absolute Auto 3300 /uL (1500-7000); Neutrophils Percent Auto 48.5 % (50-75); Platelet Count 162 X10^3/uL (150-400); Red Blood Cell Count 4.58 X10^6/uL (4.5-5.9); Red Cell Distribution Width 14.3 % (11.6-14.8); White Blood Cell Count 6.8 X10^3/uL (4.5-11.0)
[2025-03-16 09:59] LABS: Erythrocyte Sedimentation Rate 5 MM/HR (0-15)
[2025-03-16 10:06] LABS: C-Reactive Protein Quant < 0.5 mg/dL (<1.0)
[2025-03-16 10:21] LABS: TSH w/ Reflex to FT4 1.12 uIU/mL (0.47-4.68)
== END ==
PROVIDERS: Family Provider Specialist; PCP Family Medicine; Referring Provider Family Medicine; Visit Provider Family Medicine
DX: H53.2 Diplopia (principal); I48.20 Chronic atrial fibrillation, unspecified
CPT/HCPCS: 36415; 84443; 85025; 85651; 86140

== ENCOUNTER → 2025-03-29 14:07 | Outpatient (CLI) | payer OTHER, SELFPAY ==
--- NOTE | 2025-03-29 14:08 | DI.CT.S_ITS ---
PROCEDURE: CT HEAD/BRAIN WO/W CON INDICATIONS: double vision x 2 weeks, evaluate pituitary TECHNIQUE: 4.5 mm thick angled axial sections acquired from the foramen magnum to the vertex both before and after the administration of intravenous contrast, with coronal and sagittal reformats. In this patient, additional thin section images were performed through the pituitary. For radiation dose reduction, the following was used: automated exposure control, adjustment of mA and/or kV according to patient size. COMPARISON: None. FINDINGS: Image quality: Excellent. CSF spaces: Basal cisterns are patent. No extra-axial fluid collections. Ventricles are symmetric in size and shape. Brain: In this patient with this given history, scrutiny is given to the pituitary gland. The pituitary gland demonstrates normal bulk, without findings of masses. No mass effect can be seen upon the optic chiasm or the ventral forebrain. No midline shift. No intracranial bleeds or masses. No abnormal intracranial enhancement. There is cerebral volume loss for age. There is periventricular white matter chronic small vessel ischemic change. There is intracranial internal carotid artery atherosclerosis. Skull and face: Calvarium and visualized facial bones appear intact, without suspicious lesions. Sinuses: Visualized sinuses and mastoids are clear. Postoperative change of the cervical spine and occiput is partially seen. IMPRESSION: Normal appearing pituitary, without mass effect upon the optic chiasm. No masses or abnormal enhancement can be seen. Postoperative change of the superior cervical spine and the occiput partially seen. Dictated by: Drake Evans M.D. on 03/29/2025 at 16:11 Approved by: Drake Evans M.D. on 03/29/2025 at 16:14
== END ==
LOC: CT 14:08
PROVIDERS: Family Provider Specialist; PCP Family Medicine; Referring Provider Family Medicine; Visit Provider Family Medicine
DX: I65.29 Occlusion and stenosis of unspecified carotid artery (principal); H53.2 Diplopia
CPT/HCPCS: 70470; Q9967